=== PATIENT | female | born 1965 | race Two or more races ===

== ENCOUNTER 2018-05-16 00:52 | Day surgery (SDC) | payer BC ==
[~2018-05-16 00:52] MED LIST: ALBU4; CLON1 PO; CODBUTASA; CYAN100; Crutch1 EACH MISC; HYDACE10B; HYDACE5 PO; Norco 5-325 Ta1 EACH PO; OMEG1CAP30 PO; ONDA4ODT MM; OXYACE5T; OXYACE5T PO; PROM25 PO; Percocet 5-3251 EACH PO; RXOXYACE PO; TEMA30 PO; VENL75ER PO
== END 2018-05-16 22:59 | disposition home or self-care (01) ==
LOC: WOUND 00:52
DX: Z48.01 Encounter for change or removal of surgical wound dressing (principal); T81.30XA Disruption of wound, unspecified, initial encounter; Z98.84 Bariatric surgery status
CPT/HCPCS: G0463

== ENCOUNTER 2018-07-01 00:08 | Day surgery (SDC) | payer BC | END 2018-07-01 22:37 | disposition home or self-care (01) | LOC: WOUND 00:08 | DX: T81.31XD Disruption of external operation (surgical) wound, not elsewhere classified, subsequent encounter (principal); Z98.84 Bariatric surgery status; Z86.14 Personal history of Methicillin resistant Staphylococcus aureus infection | CPT/HCPCS: G0463 ==

== ENCOUNTER 2018-07-11 14:50 | Day surgery (SDC) | payer BC | END 2018-07-11 23:09 | disposition home or self-care (01) | LOC: WOUND 14:50 | DX: T81.31XD Disruption of external operation (surgical) wound, not elsewhere classified, subsequent encounter (principal); Z98.84 Bariatric surgery status; Z86.14 Personal history of Methicillin resistant Staphylococcus aureus infection | CPT/HCPCS: 87081; G0463 ==

== ENCOUNTER 2018-07-17 15:17 | Day surgery (SDC) | payer BC | END 2018-07-17 22:47 | disposition home or self-care (01) | LOC: WOUND 15:17 | DX: T81.31XD Disruption of external operation (surgical) wound, not elsewhere classified, subsequent encounter (principal); Z98.84 Bariatric surgery status; Z86.14 Personal history of Methicillin resistant Staphylococcus aureus infection ==

== ENCOUNTER 2020-10-20 07:49 | Day surgery (SDC) | payer BC ==
[~2020-10-20] VITALS: Wt 81.2 kg
[2020-10-20] MEDS ORDERED: Tenex1 MG (08:39)
[2020-10-20] MEDS ORDERED: AMLO10 (08:40)
[2020-10-20] MEDS ORDERED: CYMBALTA20 M1 PO (08:40)
[2020-10-20] MEDS ORDERED: Abilify2 MG PO (08:40)
== END 2020-10-20 10:20 | disposition home or self-care (01) ==
LOC: ORSCSDS 07:49
PROVIDERS: Student in an Organized Health Care Education/Training Program
PROC: 0DJD8ZZ Inspection of Lower Intestinal Tract, Via Natural or Artificial Opening Endoscopic (ICD-10-PCS; principal; 2020-10-20 09:00)
PROC: 0DBA8ZX Excision of Jejunum, Via Natural or Artificial Opening Endoscopic, Diagnostic (ICD-10-PCS; principal; 2020-10-20 09:00)
PROC: 0DB78ZX Excision of Stomach, Pylorus, Via Natural or Artificial Opening Endoscopic, Diagnostic (ICD-10-PCS; principal; 2020-10-20 09:00)
PROC: 0DB58ZX Excision of Esophagus, Via Natural or Artificial Opening Endoscopic, Diagnostic (ICD-10-PCS; principal; 2020-10-20 09:00)
DX: R10.13 Epigastric pain (principal); Z12.11 Encounter for screening for malignant neoplasm of colon; K21.9 Gastro-esophageal reflux disease without esophagitis; K20.90 Esophagitis, unspecified without bleeding; K57.30 Diverticulosis of large intestine without perforation or abscess without bleeding; K64.8 Other hemorrhoids; Z83.71 Family history of colonic polyps; Z98.84 Bariatric surgery status; I10 Essential (primary) hypertension; J45.909 Unspecified asthma, uncomplicated; F17.290 Nicotine dependence, other tobacco product, uncomplicated; Z79.899 Other long term (current) drug therapy
CPT/HCPCS: 43239; G0105; 88305; 88312; 88342; J2704; J7120

== ENCOUNTER 2023-02-10 23:57 | Observation (INO) | payer BC ==
[~2023-02-10] VITALS: Ht 154.9 cm; Wt 81.7 kg
[~2023-02-10 23:57] MED LIST changes: +AMLO10; +Abilify2 MG PO; +CYMBALTA20 M1 PO; +Tenex1 MG
[2023-02-11 00:21] LABS: BASOPHILS ABSOLUTE AUTO 0.05 K/mm3 (0.00-0.23); BASOPHILS PERCENT AUTO 1 % (0-2); EOSINOPHILS ABSOLUTE AUTO 0.09 K/mm3 (0.00-0.68); EOSINOPHILS PERCENT AUTO 1 % (0-6); Hematocrit 44.7 % (33.0-51.0); Hemoglobin 14.8 g/dL (11.5-16.0); IMMATURE GRAN ABSOLUTE AUTO 0.01 K/mm3 (0.00-0.10); IMMATURE GRAN PERCENT AUTO 0 % (0-1); LYMPHOCYTES PERCENT AUTO 26 % (21-46); MONOCYTES ABSOLUTE AUTO 0.59 K/mm3 (0.16-1.47); MONOCYTES PERCENT AUTO 8 % (4-13); Mean Corpuscular HGB 29.4 pg (26.0-34.0); Mean Corpuscular HGB Conc 33.1 g/dL (31.5-36.5); Mean Corpuscular Volume 89 fL (80-100); Mean Platelet Volume 9.6 fL (9.1-12.4); NEUTROPHILS ABSOLUTE AUTO 4.83 K/mm3 (1.96-9.15); NEUTROPHILS PERCENT AUTO 64 % (41-73); Platelet Count 328 K/mm3 (150-400); RDW Coefficient Variation 14.2 % (11.7-14.2); RDW Standard Deviation 46.3 fL (35.1-46.3); Red Blood Cell Count 5.04 M/mm3 (3.80-5.20); White Blood Cell Count 7.57 K/mm3 (4.00-11.30)
[2023-02-11] MEDS ORDERED: Amphetamine Sal20 MG PO (00:26)
[2023-02-11] MEDS ORDERED: CLONAZEPAM1 MG PO (00:28)
[2023-02-11] MEDS ORDERED: OMEP20ER PO (00:28)
[2023-02-11] MEDS ORDERED: AMLODIPINE BESY10 MG PO (00:28)
[2023-02-11] MEDS ORDERED: DULOXETINE HCL60 M1 PO (00:30)
[2023-02-11 00:41] LABS: Alanine Aminotransfer (ALT/SGP 22 U/L (12-78); Albumin, Blood 3.3 g/dL (3.4-5.0); Albumin/Globulin Ratio 0.9 (0.8-1.8); Alk Phos 109 U/L (50-136); Anion Gap 9 mmol/L (6-16); Aspartate Aminotrans (AST/SGOT 20 U/L (12-37); Bilirubin, Total 0.3 mg/dL (0.1-1.0); Blood Urea Nitrogen 17 mg/dL (8-24); Bun/Creatinine Ratio 17.1 (12.0-20.0); CO2, Blood 23 mmol/L (21-32); Calcium, Blood 8.6 mg/dL (8.5-10.1); Chloride, Blood 112 mmol/L (98-108); Ethanol (Alcohol), Blood, Med <3 mg/dL; Globulin, Blood 3.7 g/dL (2.2-4.0); Glomerular Filtration Rate 65 (60-); Glucose, Blood 115 mg/dL (70-99); Potassium, Blood 3.1 mmol/L (3.5-5.5); Sodium, Blood 144 mmol/L (136-145)
[2023-02-11 12:02] LABS: Salicylate <1.7 mg/dL (2.8-20.0)
[2023-02-11 12:21] LABS: Acetaminophen, Random <2.0 ug/mL (10.0-30.0)
[2023-02-11 15:54] LABS: Appearance, Urine Hazy (Clear); Bilirubin, Urine Neg (Neg); Blood, Urine Neg (Neg); Color, Urine Yellow (P-Yellow); Glucose Qualitative, Urine Neg (Neg); Ketones, Urine 3+ (Neg); Leukocyte Esterase, Urine Neg (Neg); Nitrite, Urine Neg (Neg); Protein, Urine 1+ (Neg); Specific Gravity, Urine 1.025 (1.003-1.022); Urobilinogen, Urine 1+ (Normal)
[2023-02-11 16:09] LABS: U Amphetamine Screen DETECTED; U Barbituate Screen Not Detected; U Benzodiazapine Screen DETECTED; U Buprenorphine Screen Not Detected; U Cannabinoids Screen DETECTED; U Cocaine Screen Not Detected; U Methadone Screen Not Detected; U Methamphetamine Screen Not Detected; U Opiates Screen Not Detected; U Oxycodone Screen Not Detected; U Phencyclidine Screen Not Detected; U Propoxyphene Screen Not Detected
[2023-02-11 16:17] LABS: Bacteria Few /hpf; Calcium Oxalate Crystals Many /hpf; Red Blood Cells, Urine 0-2 /hpf (0-2); Squamous Epithelial Cells Few /hpf (Few); White Blood Cells, Urine 0-2 /hpf (0-5)
[2023-02-11] MEDS ORDERED: POTA10T PO (18:34)
[2023-02-11 20:03] VITALS: BP 101/66
[2023-02-12] MEDS ORDERED: PHENERGAN25 MG (13:31)
== END 2023-02-12 17:45 ==
LOC: ER 23:57 → EOR 23:58
PROVIDERS: ADMIT Emergency Medicine
DX: F39 Unspecified mood [affective] disorder (principal); F41.9 Anxiety disorder, unspecified; S51.812A Laceration without foreign body of left forearm, initial encounter; X78.9XXA Intentional self-harm by unspecified sharp object, initial encounter; Z88.8 Allergy status to other drugs, medicaments and biological substances; Z79.899 Other long term (current) drug therapy
CPT/HCPCS: 80053; 81001; 85025; 99285; A9270; G0378; G0480